=== PATIENT | female | born 1995 | race Caucasian/White ===

== ENCOUNTER → 2023-10-20 | Emergency (ER) | payer MEDICAID, OTHER ==
[~2023-10-20] VITALS: Ht 157.5 cm; Wt 53.1 kg
[~2023-10-20] MED LIST: KETOROLAC TROMETHAMINE 15 MG/ML VIAL ONE; ONDANSETRON HCL/PF 4 MG/2 ML VIAL ONE
[2023-10-20] MEDS: ONDANSETRON HCL/PF 4 MG/2 ML VIAL IVP ONE (18:44)
[2023-10-20] MEDS: KETOROLAC TROMETHAMINE 15 MG/ML VIAL IV ONE (18:44)
[2023-10-20] MEDS: IV NS 0.9% 1,000 ML BAG IV ONE (18:45)
[2023-10-20 18:55] LABS: BASOPHILS % (AUTO) 0.4 % (0.0-2.0); EOSINOPHILS # (AUTO) 0.3 K/uL (0.0-0.7); EOSINOPHILS % (AUTO) 3.2 % (0.0-6.0); HEMATOCRIT 40 % (33-45); HEMOGLOBIN 13.5 g/dL (11.5-14.8); LYMPHOCYTES # (AUTO) 2.8 K/uL (0.8-4.8); LYMPHOCYTES % (AUTO) 30.8 % (20.0-44.0); MEAN CORPUSCULAR HEMOGLOBIN 28 PG (26.0-33.0); MEAN CORPUSCULAR HGB CONC 33 g/dl (31.0-36.0); MEAN CORPUSCULAR VOLUME 85 fL (82-100); MONOCYTES # (AUTO) 0.5 K/uL (0.1-1.30); MONOCYTES % (AUTO) 6.1 % (2.0-12.0); NEUTROPHILS # (AUTO) 5.3 K/uL (1.8-8.9); NEUTROPHILS % (AUTO) 59.5 % (43.0-81.0); PLATELET COUNT (AUTO) 399 K/uL (150-450); RED BLOOD CELL COUNT(AUTO) 4.75 MIL/uL (4.0-5.2); RED CELL DISTRIBUTION WIDTH 13.4 % (11.5-15.0); WHITE BLOOD COUNT (AUTO) 8.9 K/uL (4.3-11.0)
[2023-10-20 19:03] LABS: CALCIUM, SERUM 9.9 mg/dL (8.5-10.1); CREATININE 0.6 mg/dL (0.6-1.3); POTASSIUM 4.3 mmol/L (3.5-5.1)
[2023-10-20 19:09] LABS: ALBUMIN 3.8 g/dL (3.4-5.0); BILIRUBIN,DIRECT 0.1 mg/dL (0.0-0.2); BILIRUBIN,TOTAL 0.2 mg/dL (0.2-1.0)
[2023-10-20 21:07] VITALS: BP 111/73; TEMP 98.2; O2SAT 100
== END | disposition home or self-care (01) ==
LOC: ER 16:37
DX: R10.31 Right lower quadrant pain (principal); R10.2 Pelvic and perineal pain; Z60.2 Problems related to living alone
CPT/HCPCS: 99284; 74176; 96360; 85025; 80048; 83690; 80076; 36415; 84702; J7030; J1885; J2405